=== PATIENT | male | born 1985 | race Caucasian/White ===

== ENCOUNTER 2017-03-24 07:29 | Inpatient (IN) | payer OTHER ==
[~2017-03-24] VITALS: Ht 188 cm; Wt 75.0 kg
[2017-03-24] MEDS ORDERED: MORPHINE SULFATE 4 MG/ML INJ ONE ×2 (07:40→12:18)
[2017-03-24] MEDS ORDERED: ONDANSETRON HCL 4 MG/2 ML VIAL ONE (07:40)
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
[2017-03-24 08:05] LABS: I-STAT POTASSIUM 7.1 MMOL/L (3.5-4.9)
[2017-03-24 08:07] LABS: AUTOMATED NEUTROPHIL # 17.4 TH/MM3 (1.8-7.7); BASOPHIL # 0.1 TH/MM3 (0-0.2); BASOPHIL % 0.5 % (0.0-2.0); EOSINOPHIL # 0.1 TH/MM3 (0-0.4); EOSINOPHIL % 0.5 % (0.0-4.0); HEMATOCRIT 38.4 % (39.0-51.0); HEMO FLAGS DIFF FINAL; LYMPH % 11.8 % (9.0-44.0); LYMPHOCYTE # 2.5 TH/MM3 (1.0-4.8); MEAN CELL VOLUME 89.5 FL (80.0-100.0); MEAN CORPUSCULAR HEMOGLOBIN 29.5 PG (27.0-34.0); MONO % 3.8 % (0.0-8.0); NEUT % 83.4 % (16.0-70.0); PLATELET COUNT 224 TH/MM3 (150-450); RED BLOOD COUNT 4.29 MIL/MM3 (4.50-5.90); RED CELL DISTRIBUTION WIDTH 13.2 % (11.6-17.2); WHITE BLOOD COUNT 20.9 TH/MM3 (4.0-11.0)
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
[2017-03-24] MEDS ORDERED: HYDROmorphone HCL PF 2 MG/ML VIAL IV PUSH ONE ×3 (08:15→10:30)
[2017-03-24 08:16] LABS: APTT (PATIENT) 22.7 SEC (24.3-30.1); INTERNATIONAL NORMALIZED RATIO 1.1 RATIO; PROTHROMBIN TIME - PATIENT 10.8 SEC (9.8-11.6)
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
[2017-03-24 08:20] VITALS: RESP 20; O2SAT 98
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
[2017-03-24 08:52] VITALS: BP 131/75; PULSE 69; RESP 20; O2SAT 99
[2017-03-24] MEDS ORDERED: METH10TA PO (08:53)
[2017-03-24] MEDS: SODIUM CHLOR 0.9% 1000 ML INJ 1,000 ML IV SCH ×2 (09:02→15:00)
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
[2017-03-24 10:05] VITALS: BP 135/62; PULSE 81; RESP 16; TEMP 98.7; O2SAT 99
[2017-03-24] MEDS ORDERED: ACETAMINOPHEN 1000 MG/100 ML 100 ML IV ONE ×3 (11:15→12:30)
[2017-03-24] MEDS ORDERED: GENTAMICIN SULFATE 80 MG/2 ML VIAL ONE (11:28)
[2017-03-24] MEDS ORDERED: BUPIVACAINE/EPINEPHRINE 0.25% 50 ML VIAL ONE (11:28)
[2017-03-24] MEDS ORDERED: MIDAZOLAM HCL 2 MG/2 ML VIAL ONE (11:33)
[2017-03-24] MEDS ORDERED: MIDAZOLAM HCL 2 MG/2 ML VIAL IV ONE (11:40)
[2017-03-24] MEDS ORDERED: SODIUM CHLOR 0.9% 250 ML INJ 250 ML ONE (11:46)
[2017-03-24] MEDS ORDERED: VANCOMYCIN HCL 1000 MG VIAL ONE (11:46)
[2017-03-24] MEDS ORDERED: ceFAZolin 2 GM PREMIX 50 ML ONE (11:46)
[2017-03-24] MEDS ORDERED: BUPIVACAINE/EPINEPHRINE 0.25% PF 10 ML VIAL ONE (11:46)
[2017-03-24] MEDS ORDERED: ONDANSETRON HCL 4 MG/2 ML VIAL IV PUSH ONE (12:00)
[2017-03-24] MEDS ORDERED: POVIDONE IODINE 5% (ANTISEPSIS KIT) 4 APPLICATIONS EACH NARE PRN (12:00)
[2017-03-24] MEDS ORDERED: PHENYLEPH/NS 1000 MCG/10 ML SYR IV ONE (12:00)
[2017-03-24] MEDS ORDERED: DEXAMETHASONE SOD PHOS 4 MG/ML VIAL IV ONE (12:00)
[2017-03-24] MEDS ORDERED: ROCURONIUM INJ 50 MG/5 ML SYRINGE IV PUSH ONE (12:00)
[2017-03-24] MEDS ORDERED: PROPOFOL 200 MG/20 ML AMP IV ONE (12:00)
[2017-03-24] MEDS ORDERED: GLYCOPYRROLATE 1 MG/5 ML SYRINGE IV PUSH ONE (12:00)
[2017-03-24] MEDS ORDERED: CHLORHEXIDINE GLUCONATE 2 % 1 PACK (2 CLOTHS) TOPICAL PRN (12:00)
[2017-03-24] MEDS ORDERED: METOPROLOL TARTRATE 25 MG TAB PO PRN (12:00)
[2017-03-24] MEDS ORDERED: LIDOCAINE HCL 1% PF 5 ML SYRINGE OTHER ONE (12:00)
[2017-03-24] MEDS ORDERED: SODIUM CHLORID 0.9% 500 ML IV PRN (12:00)
[2017-03-24] MEDS ORDERED: ESMOLOL HCL 100 MG/10 ML VIAL IV ONE (12:00)
[2017-03-24] MEDS ORDERED: EPINEPHrine HCL (1:1000) 1 MG/ML VIAL IV ONE (12:00)
[2017-03-24] MEDS ORDERED: NEOSTIGMINE 5 MG/5 ML SYRINGE IV PUSH ONE (12:00)
[2017-03-24] MEDS ORDERED: LACTATED RINGER'S 1000 ML IV PRN (12:00)
[2017-03-24] MEDS ORDERED: LACTATED RINGER'S 1000 ML INJ 1,000 ML IV ONE (12:00)
[2017-03-24] MEDS ORDERED: KETAMINE HCL 500 MG/5 ML VIAL ONE (12:21)
[2017-03-24] MEDS ORDERED: MORPHINE SULFATE 4 MG/ML INJ IV ONE (12:30)
--- NOTE | 2017-03-24 13:55 | PD.OP ---
cc: Jamari Hui MD Operative Report Date of Surgery: Mar 24, 2017 Preoperative Diagnosis: Displaced left femur subtrochanteric fracture Postoperative Diagnosis: Procedure: Left femur reduction and intramedullary nail fixation Surgeon: Jamari Hui Wet End Tester(s): ANA Curiel PA-C The surgical procedure was assisted by my physician resident programs assistant. My P.A. presence was necessary throughout this case for the manipulation and positioning of the surgical extremity. My P.A. was assisting me throughout the duration of this procedure. The skill set of a physician resident programs assistant was medically necessary to complete this procedure. During the surgical case the surgical scrub tech was working at the back table and the physician resident programs assistant was directly assisting me. Operation and Findings: Implants used: [12]mm x [400]mm Synthes TFNA troch nail Plan of activity: Toe-touch weightbearing Patient was seen and evaluated preoperatively. The patient has significant hip pain from left proximal femur fracture. The risk and benefits of surgery were discussed in depth with the patient to include bleeding, infection, nonunion, malunion, need for hip replacement, painful hardware, as well as medical competitions including blood clots, stroke, heart attack, and . Informed consent was obtained. Operative site was marked. Patient was brought to the operating room and placed on fracture table. IV sedation was administered by anesthesiologist. Timeout procedure was performed. Hip and leg were prepped with alcohol followed by DuraPrep and draped in the usual sterile fashion. IV antibiotics were given prior to incision. Procedure began with reduction of fracture. Traction was applied. The leg was manipulated to achieve reduction. Excellent reduction was achieved. Fluoroscopy was used to confirm reduction. A three inch incision was made proximal to the trochanter. Subcutaneous tissue was dissected bluntly. Guidepin was placed at the tip of the trochanter and advanced into the femoral canal. Fluoroscopy confirmed appropriate guidepin placement. A opening reamer was placed over the guidepin. A long ball tipped guide pin was now placed down the femoral canal into the center of the distal femur. The nail length was now measured. Fluoroscopy confirmed appropriate guidepin placement. Flexible reamers were now passed over the guidepin to ream the intramedullary canal. The Synthes TFNA nail was attached to the insertion handle. Nail was now placed over the guidepin into the femoral canal. Fluoroscopy confirmed appropriate nail placement. A second incision was made over the lateral thigh. Cannulas were placed through the insertion handle down to the femur. Guidepin was now placed through the femoral nail into the center of the femoral head. Fluoroscopy confirmed appropriate guidepin placement. Screw length was measured. Cannulated drill was placed over the guidepin. Appropriate length lag screw was now placed. Traction was released and compression was applied. The set screw was now tightened in dynamic mode. Next, using perfect iroquois technique two distal interlocking screws were placed. Screw holes were predrilled and screw lengths were measured. Final fluoroscopy revealed well aligned fracture with well-placed hardware. Incision was closed with 3-0 Vicryl and manfred. Sterile dressings were applied. Patient was awakened and transferred to recovery room. Jamari Hui MD Mar 24, 2017 13:55
[2017-03-24] MEDS ORDERED: ERGOCALCIFEROL (VIT D2) 50,000 UNIT CAP PO ONE (14:00)
[2017-03-24] MEDS ORDERED: diphenhydrAMINE HCL 25 MG CAP PO PRN (14:00)
[2017-03-24] MEDS ORDERED: ONDANSETRON HCL 4 MG/2 ML VIAL IVP PRN (14:00)
[2017-03-24] MEDS ORDERED: DO NOT ADM ANY ANTICOAGULANT DRUGS PRN (14:05)
[2017-03-24] MEDS ORDERED: *MEPERIDINE 25 MG INJ VIAL PERIprocedural Use ONLY ONE (14:21)
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
[2017-03-24] MEDS ORDERED: *morphine SULFATE 8 MG/ML PERIprocedure ONLY ONE ×3 (14:42→14:59)
[2017-03-24] MEDS ORDERED: *HYDROmorphone PF 1 MG VIAL PERIprocedural Use ONLY ONE ×4 (15:11→16:01)
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
[2017-03-24 16:00] VITALS: BP 125/69; PULSE 93; RESP 16; TEMP 98.8; O2SAT 98
[2017-03-24] MEDS: ACETAMINOPHEN/HYDROcodone 325 MG/7.5 MG TAB PO PRN ×2 (17:51→22:53)
[2017-03-24] MEDS: CALCIUM/VITAMIN D 250 MG/125 U TAB PO SCH (17:51)
[2017-03-24] MEDS: MORPHINE SULFATE 4 MG/ML INJ IV PUSH PRN ×2 (20:11→22:53)
[2017-03-24 20:30] VITALS: BP 144/77; PULSE 82; RESP 18; TEMP 99.6; O2SAT 98
[2017-03-24 23:50] VITALS: BP 133/76; PULSE 77; RESP 18; TEMP 98.6; O2SAT 99
[2017-03-25] VITALS (8 sets, daily range): BP systolic 131–146; BP diastolic 65–73; PULSE 80–100; RESP 18; TEMP 97.6–100.5; O2SAT 96–100
[2017-03-25] MEDS: SODIUM CHLOR 0.9% 1000 ML INJ 1,000 ML IV SCH ×3 (00:30→16:30)
[2017-03-25] MEDS: ACETAMINOPHEN/HYDROcodone 325 MG/7.5 MG TAB PO PRN ×2 (02:07→04:58)
[2017-03-25] MEDS: MORPHINE SULFATE 4 MG/ML INJ IV PUSH PRN ×7 (02:08→21:18)
[2017-03-25] MEDS ORDERED: HYDR-3583 PO (06:15)
[2017-03-25] MEDS ORDERED: XARE10TA PO (06:15)
[2017-03-25] MEDS ORDERED: WALKER/ADULT/FO1 MIS (06:15)
[2017-03-25] MEDS ORDERED: ACETAMINOPHEN/HYDROcodone 325 MG/10 MG TAB PO PRN (06:45)
--- NOTE | 2017-03-25 06:50 | PD.ORT.PN ---
Subjective Subjective Remarks Still having difficulty with pain control. No new complaints Objective Vitals Vital Signs Date Time Temp Pulse Resp B/P (MAP) Pulse Ox O2 Delivery O2 Flow Rate FiO2 03/25/17 04:35 99.5 86 18 136/69 (91) 99 03/24/17 23:50 98.6 77 18 133/76 (95) 99 03/24/17 20:30 99.6 82 18 144/77 (99) 98 03/24/17 17:20 Nasal Cannula 3.00 03/24/17 16:15 97.6 74 16 134/69 (90) 97 Room Air 03/24/17 16:00 98.8 93 16 125/69 (87) 98 03/24/17 16:00 73 16 128/66 (86) 96 Room Air 03/24/17 15:55 15 03/24/17 15:45 74 16 121/68 (85) 95 Room Air 03/24/17 15:41 15 03/24/17 15:30 75 16 123/65 (84) 95 Room Air 03/24/17 15:21 15 03/24/17 15:15 76 16 128/64 (85) 100 Nasal Cannula 2 03/24/17 15:04 15 03/24/17 15:00 79 16 130/61 (84) 99 Nasal Cannula 2 03/24/17 14:54 15 03/24/17 14:47 15 03/24/17 14:45 88 16 134/63 (86) 100 Nasal Cannula 3 03/24/17 14:30 94 16 138/64 (88) 99 Nasal Cannula 3 03/24/17 14:15 108 16 144/65 (91) 98 Nasal Cannula 3 03/24/17 14:05 97.4 116 24 142/65 (90) 100 Simple Mask 8 03/24/17 10:50 03/24/17 10:05 98.7 81 16 135/62 (86) 99 Room Air 03/24/17 10:01 16 03/24/17 09:02 20 03/24/17 08:52 69 20 131/75 (93) 99 Room Air 03/24/17 08:20 20 98 Room Air I/O 03/24/17 03/24/17 03/24/17 03/25/17 03/25/17 03/25/17 07:00 15:00 23:00 07:00 15:00 23:00 Intake Total 1500 ml 360 ml 240 ml Output Total 330 ml 850 ml Balance 1170 ml -490 ml 240 ml Intake Oral 360 ml 240 ml Other 1500 ml Output Urine Total 300 ml 850 ml Estimated Blood Loss 30 ml # Voids 1 1 2 # Bowel Movements 0 0 Result Diagram: 03/24/17 0750 03/24/17 1145 Other Results Laboratory Tests Test 03/24/17 07:50 Prothromb Time International Ratio 1.1 RATIO Prothrombin Time 10.8 SEC (9.8-11.6) Imaging Last 24 hours Impressions Pelvis X-Ray 03/24/1737 Signed Impressions: Service Date/Time: Friday, March 24, 2017 07:35 - CONCLUSION: 1. Comminuted proximal left femoral fracture. Wayne Catalan MD Head CT 03/24/1737 Signed Impressions: Service Date/Time: Friday, March 24, 2017 07:59 - CONCLUSION: 1. No acute intracranial abnormality. Wayne Catalan MD Chest X-Ray 03/24/1737 Signed Impressions: Service Date/Time: Friday, March 24, 2017 07:35 - CONCLUSION: 1. Negative portable chest status post trauma. Wayne Catalan MD Cervical Spine CT 03/24/1737 Signed Impressions: Service Date/Time: Friday, March 24, 2017 07:59 - CONCLUSION: 1. No acute fracture or subluxation. Wanye Catalan MD Tibia/Fibula X-Ray 03/24/17 0000 Signed Impressions: Service Date/Time: Friday, March 24, 2017 07:35 - CONCLUSION: 1. No significant acute fracture or dislocation. Wayne Catalan MD Humerus X-Ray 03/24/17 0000 Signed Impressions: Service Date/Time: Friday, March 24, 2017 07:35 - CONCLUSION: 1. No significant acute fracture or dislocation. Wayne Catalan MD Hip X-Ray 03/24/17 0000 Signed Impressions: Service Date/Time: Friday, March 24, 2017 07:35 - CONCLUSION: 1. Comminuted displaced proximal left femoral fracture, as above. Wayne Catalan MD Hand X-Ray 03/24/17 0000 Signed Impressions: Service Date/Time: Friday, March 24, 2017 07:35 - CONCLUSION: 1. No significant acute fracture or dislocation. Wayne Catalan MD Femur X-Ray 03/24/17 0000 Signed Impressions: Service Date/Time: Friday, March 24, 2017 07:35 - CONCLUSION: 1. Displaced proximal femur fracture, as above. Wayne Catalan MD Objective Remarks Bilateral upper extremities: No significant pain with range of motion of shoulder elbow and wrist. He has intact sensation of the radial ulnar median nerve distributions with good capillary refills. He is able to fully extend his fingers and make this bilaterally. Right lower extremity: Full range of motion neurovascularly intact Left lower extremity: Clean dry dressings intact. Compartments semi-soft. Distally intact sensation with active dorsiflexion and plantar flexion of the foot. Good capillary refills and distal pulses Assessment & Plan Assessment and Plan Left subtrochanteric femur fracture status post IM nail POD 1 Physical therapy toe-touch weightbearing left lower extremity Daily dressing changes beginning POD 2 Continue to work with pain control - patient was on outpatient methadone and pain control is going to be difficult to achieve Lovenox Incentive spirometry Plan for discharge tomorrow or Thursday Cali Maldonado Jr. Mar 25, 2017 06:50
[2017-03-25] MEDS: CHOLECALCIFEROL (VIT D3) 5000 UNIT CAP PO SCH (07:56)
[2017-03-25] MEDS: CALCIUM/VITAMIN D 250 MG/125 U TAB PO SCH ×3 (07:56→17:21)
[2017-03-25] MEDS: ENOXAPARIN SODIUM 40 MG/0.4 ML SYRINGE SQ SCH (07:57)
[2017-03-25] MEDS ORDERED: DIAZEPAM 5 MG TAB PO ONE (12:15)
[2017-03-25] MEDS: oxyCODONE/ACETAMINOPHEN 10 MG/325 MG TAB PO PRN ×4 (12:15→23:34)
[2017-03-25 15:23] LABS: HEMATOCRIT 25.2 % (39.0-51.0); REVIEW FLAG FINAL
[2017-03-26] MEDS: SODIUM CHLOR 0.9% 1000 ML INJ 1,000 ML IV SCH ×2 (00:30→05:56)
[2017-03-26] MEDS: MORPHINE SULFATE 2 MG/ML INJ IV PUSH PRN ×4 (01:33→11:36)
[2017-03-26] MEDS: oxyCODONE/ACETAMINOPHEN 10 MG/325 MG TAB PO PRN ×4 (02:56→14:18)
[2017-03-26 04:59] VITALS: TEMP 99.2
[2017-03-26] MEDS ORDERED: PERC10TA27 PO (06:40)
--- NOTE | 2017-03-26 07:02 | PD.ORT.PN ---
Subjective Subjective Remarks POD 2 s/p IMN left hip states painful to get out of bed but improving. Objective Vitals Vital Signs Date Time Temp Pulse Resp B/P (MAP) Pulse Ox O2 Delivery O2 Flow Rate FiO2 03/25/17 23:25 100.2 98 18 137/70 (92) 100 03/25/17 21:28 99.9 03/25/17 20:27 100.2 98 18 146/73 (97) 99 03/25/17 18:08 98 Nasal Cannula 3.00 03/25/17 17:27 16 03/25/17 16:20 16 03/25/17 16:00 100.5 100 18 143/73 (96) 96 03/25/17 12:00 100 03/25/17 12:00 97.6 80 18 144/65 (91) 98 03/25/17 09:59 16 03/25/17 08:00 100.2 89 18 131/69 (89) 100 I/O 03/25/17 03/25/17 03/25/17 03/26/17 03/26/17 03/26/17 07:00 15:00 23:00 07:00 15:00 23:00 Intake Total 240 ml 960 ml 1000 ml Output Total 1200 ml Balance 240 ml -240 ml 1000 ml Intake Oral 240 ml 960 ml IV Total 1000 ml Output Urine Total 1200 ml # Voids 2 4 # Bowel Movements 0 0 Result Diagram: 03/25/17 1447 03/24/17 1145 Imaging Last 24 hours Impressions Pelvis X-Ray 03/24/17736 Signed Impressions: Service Date/Time: Friday, March 24, 2017 07:35 - CONCLUSION: 1. Comminuted proximal left femoral fracture. Wayne Catalan MD Head CT 03/24/17736 Signed Impressions: Service Date/Time: Friday, March 24, 2017 07:59 - CONCLUSION: 1. No acute intracranial abnormality. Wayne Catalan MD Chest X-Ray 03/24/17736 Signed Impressions: Service Date/Time: Friday, March 24, 2017 07:35 - CONCLUSION: 1. Negative portable chest status post trauma. Wayne Catalan MD Cervical Spine CT 03/24/17736 Signed Impressions: Service Date/Time: Friday, March 24, 2017 07:59 - CONCLUSION: 1. No acute fracture or subluxation. Wayne Catalan MD Tibia/Fibula X-Ray 03/24/17 0000 Signed Impressions: Service Date/Time: Friday, March 24, 2017 07:35 - CONCLUSION: 1. No significant acute fracture or dislocation. Wayne Catalan MD Humerus X-Ray 03/24/17 0000 Signed Impressions: Service Date/Time: Friday, March 24, 2017 07:35 - CONCLUSION: 1. No significant acute fracture or dislocation. Wayne Catalan MD Hip X-Ray 03/24/17 0000 Signed Impressions: Service Date/Time: Friday, March 24, 2017 07:35 - CONCLUSION: 1. Comminuted displaced proximal left femoral fracture, as above. Wayne Catalan MD Hand X-Ray 03/24/17 0000 Signed Impressions: Service Date/Time: Friday, March 24, 2017 07:35 - CONCLUSION: 1. No significant acute fracture or dislocation. Wayne Catalan MD Femur X-Ray 03/24/17 0000 Signed Impressions: Service Date/Time: Friday, March 24, 2017 07:35 - CONCLUSION: 1. Displaced proximal femur fracture, as above. Wayne Catalan MD Objective Remarks Bilateral upper extremities: No significant pain with range of motion of shoulder elbow and wrist. He has intact sensation of the radial ulnar median nerve distributions with good capillary refills. He is able to fully extend his fingers and make this bilaterally. Right lower extremity: Full range of motion neurovascularly intact Left lower extremity: Clean dry dressings intact. Compartments semi-soft. Distally intact sensation with active dorsiflexion and plantar flexion of the foot. Good capillary refills and distal pulses Assessment & Plan Assessment and Plan 1) Left subtrochanteric femur fracture status post IM nail POD 2 Physical therapy toe-touch weightbearing left lower extremity Daily dressing changes Continue to work with pain control - patient was on outpatient methadone and pain control is going to be difficult to achieve Lovenox. DC with xarelto Incentive spirometry Ortho cleared for DC when safe with PT f/u with [facility] or PA in 2 weeks Osman Black PA/Supervisor [employer] Mar 26, 2017 07:02
--- NOTE | 2017-03-26 07:05 | HHI.FF ---
Face to Face Verification Diagnosis: (1) Fracture of left femur Physical Therapy Gait training Hip: Hip fracture, Protocol: Left Left LE Weight Bearing: Toe Touch WB Nursing Dressing Changes: Daily dressing change, 4x4s, Paper tape, Xeroform I have seen patient Jovany Wilson on 03/26/17. My clinical findings support the need for the requested home health care services because: Ltd mobility - disease progression I certify that my clinical findings support that this patient is homebound because: Post-op weakness Osman Black/Check Writer [employer] FARRAH Mar 26, 2017 07:05
[2017-03-26 07:40] VITALS: BP 133/63; PULSE 95; RESP 17; TEMP 99.8; O2SAT 100
[2017-03-26] MEDS: CALCIUM/VITAMIN D 250 MG/125 U TAB PO SCH ×2 (08:51→13:00)
[2017-03-26] MEDS: CHOLECALCIFEROL (VIT D3) 5000 UNIT CAP PO SCH (08:51)
[2017-03-26] MEDS: ENOXAPARIN SODIUM 40 MG/0.4 ML SYRINGE SQ SCH (08:52)
[2017-03-26 11:28] VITALS: BP 143/75; PULSE 92; RESP 17; TEMP 100.5; O2SAT 100
== END 2017-03-26 16:45 | disposition left against medical advice (07) | DRG 482 ==
LOC: HOR 07:29 → NEDA 08:33 → N06A 16:28
PROVIDERS: ADMIT Orthopaedic Surgery Orthopaedic Trauma; ATTEND Orthopaedic Surgery Orthopaedic Trauma
PROC: 0QS706Z Reposition Left Upper Femur with Intramedullary Internal Fixation Device, Open Approach (ICD-10-PCS; principal; 2017-03-24 12:46)
DX: S72.22XA Displaced subtrochanteric fracture of left femur, initial encounter for closed fracture (principal); F12.10 Cannabis abuse, uncomplicated; G89.29 Other chronic pain; M54.9 Dorsalgia, unspecified; R07.81 Pleurodynia; V29.9XXA Motorcycle rider (driver) (passenger) injured in unspecified traffic accident, initial encounter
CPT/HCPCS: 29505; 70450; 71010; 72125; 72170; 73120; 73501; 73551; 73552; 76000; 82306; 82435; 82565; 82947; 84132; 84295; 84520; 85014; 85018; 85025; 85610; 85730; 86850; 86900; 86901; 96361; 96374; 96375; C1713; J0131; J0171; J0690; J1100; J1170; J1580; J1650; J2175; J2250; J2270; J2370; J2405; J2710; J3010; J3370; J7030; J7050; J7120